=== PATIENT | female | born 1990 | race Caucasian/White ===

== ENCOUNTER 2020-10-02 19:43 | Emergency (ER) | payer OTHER, SELFPAY ==
[2020-10-02 19:47] VITALS: BP 151/66; PULSE 67; RESP 16; TEMP 36.4; O2SAT 98
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
== END 2020-10-02 20:30 | disposition home or self-care (01) ==
PROVIDERS: Emergency Provider Physician Assistant; PCP Physician Assistant Medical
DX: M79.602 Pain in left arm (principal); S49.82XA Other specified injuries of left shoulder and upper arm, initial encounter; V89.2XXA Person injured in unspecified motor-vehicle accident, traffic, initial encounter
CPT/HCPCS: 99282

== ENCOUNTER 2020-10-15 04:03 | Outpatient (CLI) | payer OTHER, SELFPAY ==
--- NOTE | 2020-10-15 15:02 | DI.RAD_ITS ---
EXAM: XR CERVICAL SPINE COMP 4-5V CLINICAL HISTORY: NECK PAIN, M54.2 TECHNIQUE: COMPARISON: No exams were available for comparison FINDINGS: Five views were obtained. Alignment appears within normal limits. Intervertebral disc spaces are we ll maintained. No bony abnormality seen. Neural foramina appear intact on oblique views. IMPRESSION: Negative examination of the cervical spine. RADIATION DOSE DELIVERED: Total DLP
== END 2020-10-15 04:23 ==
PROVIDERS: PCP Physician Assistant Medical; Visit Provider Physician Assistant Medical
DX: M54.2 Cervicalgia (principal)
CPT/HCPCS: 72050

== ENCOUNTER 2023-01-31 04:23 | Outpatient (CLI) | payer OTHER, SELFPAY ==
[2023-01-31 07:45] LABS: ALT 40 U/L (14-59); AST 21 U/L (15-37); Albumin 3.7 g/dL (3.4-5.0); Alkaline Phosphatase 122 U/L (46-116); Anion Gap 5.2 mmol/L (3-11); BUN 12 mg/dL (7-18); Bilirubin, Total 0.4 mg/dL (0.2-1.0); CO2 29.8 mmol/L (21.0-32.0); CREATININE 0.9 mg/dL (0.55-1.02); Calcium 8.9 mg/dL (8.5-10.1); Chloride 106 mmol/L (98-107); Estimated GFR 87.11 (mL/min/1.73m2); Glucose 108 mg/dL (74-106); Potassium 4.4 mmol/L (3.5-5.1); Sodium 141 mmol/L (136-145); TSH (W/Ref FT4) 2.23 uIU/mL (0.36-3.74); Total Protein 7.2 g/dL (6.4-8.2)
[2023-01-31 07:48] LABS: Abs Immature Grans 0.04 10^3/uL (0.0-0.06); Absolute Basophil Count 0.06 10^3/uL (0.0-0.2); Absolute Eosinophil Count 0.15 10^3/uL (0.0-0.7); Absolute Monocyte Count 0.91 10^3/uL (0.1-0.8); Absolute Neutrophil Count 6.15 10^3/uL (1.2-6.7); Basophils % 0.6; Eosinophils % 1.5; HCT 44.1 % (36.0-46.0); Immature Grans % 0.4; Lymphocytes % 29.1; MCV 94 fL (80-95); MPV 9.8 fL (8.0-11.0); Monocytes % 8.8; Neutrophils % 59.6; Platelet Count 305 10^3/uL (130-400); RBC 4.69 10^6/uL (3.93-5.22); RDW 12.3 % (11.7-14.6); RDW-SD 42.8 fL; WBC 10.31 10^3/uL (4.4-10.8)
[2023-01-31 08:39] LABS: Hemoglobin A1C 5.5 % (<5.7)
[2023-01-31 11:08] LABS: Calculated LDL 96 mg/dL (<100); Cholesterol 146 mg/dL (<200); HDL Cholesterol 43 mg/dL (40-60); Triglyceride 37 mg/dL (<150)
[2023-02-05 14:00] LABS: IgA 92 mg/dL (85-499); Interpretation (See Note); Tissue Transglutaminase IgA 1.2 U/mL (<4.0)
== END 2023-01-31 04:24 | disposition home or self-care (01) ==
LOC: LBO 04:23
PROVIDERS: PCP Physician Assistant Medical; Visit Provider Physician Assistant Medical
DX: Z00.00 Encounter for general adult medical examination without abnormal findings (principal); E66.9 Obesity, unspecified; N94.6 Dysmenorrhea, unspecified
CPT/HCPCS: 36415; 80053; 80061; 82784; 83516; 83036; 84443; 85025

== ENCOUNTER 2024-11-13 21:16 | Emergency (ER) | payer OTHER, SELFPAY ==
[2024-11-13 21:23] VITALS: BP 143/80; PULSE 87; RESP 18; TEMP 36.5; O2SAT 98
[2024-11-13 21:26] VITALS: BP 143/80; PULSE 87; RESP 18; TEMP 36.5; O2SAT 98
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
== END 2024-11-13 22:03 | disposition home or self-care (01) ==
LOC: ER 22:09
PROVIDERS: Emergency Provider Physician Assistant; PCP Physician Assistant Medical
DX: J02.9 Acute pharyngitis, unspecified (principal); F17.210 Nicotine dependence, cigarettes, uncomplicated
CPT/HCPCS: 87880; 99283; 87081

== ENCOUNTER 2025-01-12 11:43 | Outpatient (REF) | payer OTHER, SELFPAY ==
--- NOTE | 2025-01-12 10:40 | PAPFT_PTH ---
PATIENT: Beatriz Garner LOC: [facility] U#:[id number] AGE/SX: 34/F ROOM: RE01/12/[address]: Ivis Yates DO : 1990 BED: DIS: 01/12/2025 SPEC #: [id number] RECD: 01/12/25 18:08 STATUS: SHANNON REQ #: [id number] NICOLLE: 01/12/25 10:[address]: Ivis Yates DEPT: [facility] Cytology RECD BY: Shira Hernandez ENTERED: 01/12/25 18:08 SP TYPE: PAPFT OTHR DR: Kaylie Dumont Tissues: 1 - CX/ENDOCX FOR PAP SMEARS Procedures: PAP THIN PREP/UVM Screening HPV DNA PROBE Comments: [id number] (HPV 16 & 18/45) (CHLAMYDIA/GC)
[2025-01-13 12:17] LABS: Chlamydia Result Negative (Negative); GC Result Negative (Negative)
== END 2025-01-12 11:44 | disposition home or self-care (01) ==
LOC: LBN 11:43
PROVIDERS: PCP Physician Assistant Medical; Visit Provider Obstetrics & Gynecology
DX: Z12.4 Encounter for screening for malignant neoplasm of cervix (principal)
CPT/HCPCS: 87491; 87591; 88142; 87624